=== PATIENT | female | born 2005 | race Caucasian/White ===

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

== ENCOUNTER 2024-07-04 15:13 | Emergency (ER) | payer BC, SELFPAY ==
[2024-07-04] VITALS (12 sets, daily range): BP systolic 114–135; BP diastolic 78–95; PULSE 71–129; RESP 15–30; TEMP 36.6; O2SAT 96–99
--- NOTE | ~2024-07-04 | XR_ITS ---
EXAMINATION: XR chest 1V portable DATE: 07/04/2024 16:31 INDICATION: Palpitations. TECHNIQUE: A single frontal view of the chest was obtained. COMPARISON: Chest single view 07/09/19 FINDINGS: There is no pneumonia, pleural effusion, or pneumothorax. The heart size is normal. IMPRESSION: 1. No acute cardiopulmonary disease. Reviewed, dictated and finalized at location A.
--- NOTE | 2024-07-04 15:23 | ECG_ITS ---
Test Date: 2024-07-04 15:37:40 Measurements Intervals [place] Rate: 116 P: 70 [place]: 196 QRS: 68 QRSD: 81 T: 66 QT: 294 QTc: 409 Interpretive Statements SINUS TACHYCARDIA POSSIBLE RIGHT ATRIAL ENLARGEMENT [0.25mV P-WAVE] ABNORMAL RHYTHM ECG No previous ECG available for comparison Electronically Signed On 07-05-2024 13:32:02 CDT by Joey Mario M.D.
--- NOTE | 2024-07-04 15:23 | ED.ARRPALP ---
HPI - Arrhythmia/Palpitations General Chief Complaint: Chest Pain Stated Complaint: rapid heart rate Time Seen by Provider: 07/04/24 15:23 Source: patient Mode of arrival: ambulatory Limitations: no limitations History of Present Illness HPI narrative: 18-year-old female with no significant past medical history presented to the outpatient clinic with a 3 day history of -- increased heart rate /palpitation. The patient denied any chest pain or shortness of breath. The patient takes escitalopram. -- The patient had nasal congestion and had been taking DayQuil and NyQuil every 4 hours. The patient went to her primary care physician where she was checked for influenza /RSV / COVID/ strep a was noted to be negative. MD complaint: rapid heart beat Onset (ago): day(s) ( 3 days) Duration: constant Severity: mild Context: occurred during rest Associated symptoms: denies other symptoms Related Data Home Medications Medication Instructions Recorded Confirmed escitalopram oxalate 10 mg tablet 10 mg PO DAILY 07/04/24 07/04/24 Allergies Allergy/AdvReac Type Severity Reaction Status Date / Time No Known Allergies Allergy Verified 07/04/24 15:26 Review of Systems Review of Systems: All systems reviewed & are unremarkable except as noted in HPI and below Constitutional: Constitutional: Reports as per HPI and Reports no additional constitutional complaints Eyes: Eyes: Reports as per HPI and Reports no additional eye complaints ENT: Reports system reviewed and no additional complaints, except as documented and Reports as per HPI Cardiovascular: Cardiovascular: Reports as per HPI, Reports no additional cardiovascular complaints and Reports rapid heart rate Respiratory: Respiratory: Reports as per HPI and Reports no additional respiratory complaints Gastrointestinal: Gastrointestinal: Reports as per HPI and Reports no additional gastrointestinal complaints Genitourinary: Genitourinary: Reports no additional female genitourinary complaints and Reports as per HPI Musculoskeletal: Musculoskeletal: Reports no additional musculoskeletal complaints and Reports as per HPI Integumentary/Breasts: Skin/Breast: Reports system reviewed and no additional complaints, except as docu and Reports as per HPI Neurologic: Reports system reviewed and no additional complaints, except as documented and Reports as per HPI Psychiatric: Psychiatric: Reports no additional psychiatric complaints and Reports as per HPI Endocrine: Endocrine: Reports no additional endocrine complaints and Reports as per HPI Hematologic/Lymphatic: Hematologic/Lymphatic: Reports no additional hematologic/lymphatic complaints and Reports as per HPI Allergic/Immunologic: Allergic/Immunologic: Reports no additional allergic/immunologic complaints and Reports as per HPI Exam Narrative: heart rate of 116. Blood pressure 135/91. Respiratory rate of 22. Patient is afebrile. Patient is saturating 99% on room air. Const: General: no acute distress Nutritional Appearance: well nourished Orientation/consciousness: patient oriented x3 Limitations: no limitations HENMT: Head: normal to inspection Ears: external ears normal Face/Nose/Sinus: Normal external nose present Face and sinus: normal facial exam Mouth: Yes Normal oral and palatal mucosa present Throat: posterior oropharynx normal Eyes: Conjunctivae: conjunctivae normal Pupils: Equal, round and reactive pupils present EOM: EOMs intact bilaterally Direct Ophthalmoscopy: no photophobia Neck: Neck: normal visual inspection, no lymphadenopathy and no meningeal signs Chest: Chest palpation & inspection: normal inspection of the chest Resp: Effort & Inspection: normal respiratory effort Auscultation: clear to auscultation bilaterally Cardio: Rate: regular rate Rhythm: regular rhythm GI: Auscultation: normal bowel sounds Rectal Exam: normal sphincter tone : General: Yes bladder normal to palpation and
[2024-07-04 15:39] LABS: Basophils Absolute Auto 0.09 K/mm3 (0.00-0.10); Eosinophils Percent Auto 3.3 % (1.0-6.0); Hematocrit 43.6 % (35.0-49.0); Immature Granulocyte Absolute 0.02 K/mm3 (0.00-0.00); Immature Granulocyte Percent A 0.2 % (0.0-0.0); Lymphocytes Absolute Auto 1.54 K/mm3 (1.10-4.50); Lymphocytes Percent Auto 16.9 % (18.0-42.0); Mean Corpuscular HGB Conc 34.4 g/dL (32-36); Monocytes Absolute Auto 1.31 K/mm3 (0.10-0.90); Monocytes Percent Auto 14.3 % (2.0-11.0); Neutrophils Absolute Auto 5.87 K/mm3 (1.70-7.20); Neutrophils Percent Auto 64.3 % (50.0-70.0); Platelet Count Result 248 K/mm3 (150-420); Red Blood Count 4.54 M/mm3 (4.20-5.40); Red Cell Distribution Width 12.5 % (11.6-14.4); White Blood Count 9.1 K/mm3 (4.8-10.8)
--- NOTE | 2024-07-04 15:47 | PC.NURSE ---
FATHER AT BEDSIDE, ERP IS SPEAKING WITH PT AND FATHER. PT WAS UP TO RR AND BACK WITHOUT DIFFICULTY. PT DENIES ANY NEEDS OR COMPLAINTS. PT IS AWAITING RESULTS AT THIS TIME. WILL CONTINUE TO MONITOR.
[2024-07-04 15:48] LABS: Add Urine Microscopic? NO; Appearance Urine Clear (Clear); Bilirubin Urine Negative (Negative); Blood Urine Negative (Negative); Color Urine Yellow (Yellow); Glucose Urine UA Negative (Negative); Ketones Urine Trace (Negative); Leukocyte Esterase Ur Negative LEU/UL (Negative); Nitrate Urine Negative (Negative); Protein Urine Negative (Negative); Specific Grav Ur >= 1.030 (1.010-1.020); Urobilinogen Urine 0.2 mg/dL (0.2-1.0)
[2024-07-04 15:49] LABS: Pregnancy On Board Control Positive; Urine Pregnancy Test Negative
[2024-07-04 15:55] LABS: Lactic Acid Reflex 1.1 mmol/L (0.4-2.0)
[2024-07-04 16:01] LABS: Alanine Aminotransferase 17 U/L (14-59); Albumin Level 4.2 g/dL (3.4-5.0); Alkaline Phosphatase 100 U/L (46-116); Anion Gap 12 mmol/L (4-12); Aspartate Amino Transferase 14 U/L (15-37); Bilirubin,Total 0.3 mg/dL (0.00-1.00); Blood Urea Nitrogen 13 mg/dL (7-18); Calcium 9.4 mg/dL (8.5-10.1); Carbon Dioxide 26 mmol/L (21-32); Chloride 104 mmol/L (98-108); Estimated CRCL calculation 103 ml/min; Estimated Glomerular Filt Rate > 60; Glucose 101 mg/dL (70-99); Osmolality Calculated 294 mOsm/kg (285-295); Potassium 3.5 mmol/L (3.5-5.1); Sodium 142 mmol/L (136-145); Thyroid Stimulating Hormone 1.55 uIU/mL (0.36-3.74); Total Protein 7.7 g/dL (6.4-8.2)
[2024-07-04 16:10] LABS: Troponin I < 4.0 ng/L (0.00-60.4)
[2024-07-04 16:22] LABS: Amphetamine Screen Urine Negative (Negative); Barbiturate Screen Urine Negative (Negative); Benzodiazepines Screen Urine Negative (Negative); Cannabinoid Screen Urine Positive (Negative); Cocaine Screen Urine Negative (Negative); Methadone Screen Urine Negative (Negative); Opiate Screen Urine Negative (Negative); Phencyclidine Screen Urine Negative (Negative)
--- NOTE | 2024-07-04 16:32 | PC.NURSE ---
PT IS SITTING IN EXAM ROOM TALKING WITH FAMILY AND LAUGHING AT THIS TIME. NAD NOTED. PT DENIES ANY NEEDS OR COMPLAINTS. PT IS AWAITING RESULTS. WILL CONTINUE TO MONITOR.
--- NOTE | 2024-07-04 17:03 | PC.NURSE ---
WATER PROVIDED TO PT. FAMILY AT BEDSIDE. PT DENIES ANY OTHER NEEDS OR COMPLAINTS. HR IS 84 AT THIS TIME. PT IS AWAITING ERP DECISION. WILL CONTINUE TO MONITOR.
== END 2024-07-04 17:18 | disposition home or self-care (01) ==
PROVIDERS: Emergency Provider Internal Medicine Critical Care Medicine; PCP Internal Medicine
DX: R00.2 Palpitations (principal); Z79.899 Other long term (current) drug therapy
CPT/HCPCS: 36415; 71045; 80053; 80307; 81003; 81025; 83605; 84443; 84484; 85025; 93005; 99284